=== PATIENT | female | born 2005 | race Two or more races ===

== ENCOUNTER → 2025-07-15 | Outpatient (CLI) | payer MEDICAID, SELFPAY ==
--- NOTE | 2025-07-15 16:46 | XR_ITS ---
Examination: Complete OB ultrasound, less than 14 weeks, transabdominal Date and time of exam: July 15, 2025, 1651 hours INDICATIONS: No heart tones on Doppler examination in the doctor's office 3 days ago Technique: Obstetrical ultrasound images less than 14 weeks performed via transabdominal imaging Findings: A normal shaped single intrauterine gestation is present in the uterus. CRL 6.5 cm corresponds to 12 weeks 6 days gestational age Cardiac motion 158 bpm Ultrasonographic survey of visible and placental structures unremarkable. Amniotic fluid volume appears appropriate for this estimated gestational age. Right ovary 3.5 cm arterial flow. Left ovary 2.9 cm arterial flow 18 mm corpus luteum cyst IMPRESSION: Viable intrauterine gestation 12 weeks 6 days Cardiac motion 158 bpm.
== END | disposition home or self-care (01) ==
LOC: CDIM 16:40
PROVIDERS: PCP Physician Assistant; Referring Provider Obstetrics & Gynecology; Visit Provider Obstetrics & Gynecology
DX: O36.8120 Decreased fetal movements, second trimester, not applicable or unspecified (principal); Z3A.12 12 weeks gestation of pregnancy
CPT/HCPCS: 76801